=== PATIENT | female | born 1985 | race Caucasian/White ===

== ENCOUNTER 2016-06-20 10:30 | Emergency (ER) | payer OTHER ==
[~2016-06-20] VITALS: Ht 165.1 cm; Wt 77.1 kg
[~2016-06-20 10:30] MED LIST: BACTRIM,SEPT1 TABLET PO; MAXITROL EYE DRO5 ML LEFT EYE; MOTRIN800 MG PO; NAPROSYN500 MG PO; NOHOMEMEDS; PERCOCET 5/31 TABLET PO; VICODIN 5-3001 EACH PO; VICODIN,LORT1 TABLET PO
[2016-06-20] MEDS ORDERED: MOTRIN800 MG PO (12:20)
[2016-06-20 12:48] VITALS: BP 123/71
== END 2016-06-20 12:50 | disposition home or self-care (01) ==
LOC: EME 10:30
DX: S89.81XA Other specified injuries of right lower leg, initial encounter (principal); W11.XXXA Fall on and from ladder, initial encounter
CPT/HCPCS: 73564; 99281; 99283